=== PATIENT | male | born 1935 | race African-American/Black ===

== ENCOUNTER → 2016-12-23 | Outpatient (CLI) | payer MEDICARE ==
[~2016-12-23] MED LIST: AMLO10TA2 PO; AMLO5TAB2 PO; ATOR10TA PO; BICA50TA4 PO; GOSE10.8 SQ; IOHEXOL 240 MG/ML 50ML VIAL. PO ONE; VENL37.5 PO
--- NOTE | 2016-12-23 12:33 | RAD ---
CT study of the chest and abdomen and pelvis without contrast History: Prostate cancer. Follow-up study. Comparison: August 18, 2010 Technique: Noncontrast helical CT scanning of the chest and abdomen and pelvis was performed. Without contrast, the sensitivity to detect organ pathology is decreased. GI contrast was administered per mouth. PQRS Compliance Statement: One or more of the following individualized dose reduction techniques were utilized for this examination: 1. Automated exposure control 2. Adjustment of the mA and/or kV according to patient size 3. Use of iterative reconstruction technique CHEST CT: The heart size is at the upper limits and normal. Calcified atheromatous lymph nodes are seen within the right hilum. Right paratracheal and azygous lymph nodes are unchanged. No new thoracic lymphadenopathy is seen. No focal aneurysmal dilatation of the abdominal aorta is seen. Old granulomatous nodules are again seen. No new lung nodules are evident. No new lung infiltrate is seen. There is some chronic scarring within the lingula. No pleural effusion or pneumothorax is seen. The proximal bronchial tree is patent. No osteolytic process is seen. IMPRESSION: No new pulmonary nodules are evident. No acute radiographic abnormality is evident. ABDOMEN AND PELVIS CT: The liver and spleen and pancreas are homogeneous in appearance on this noncontrast study. The gallbladder is normal and no extra hepatic biliary ductal dilatation is seen. Left renal cysts are seen. No hydronephrosis or perinephric fluid collection is seen on either side. No adrenal mass is evident. No focal aneurysmal dilatation of the abdominal aorta is seen. Mild fecal retention is seen throughout the colon. No obstructive bowel pattern is evident. No free intraperitoneal air or free fluid or inflammatory change is seen. Small sclerotic lesions of L3 and the left pubic bone are seen which are stable consistent with benign bony islands. There is scoliosis of the spine with secondary degenerative endplate sclerosis and spurring and disc space narrowing. There has been progression of osteoarthritis of the right hip joint which is severe with [id number] interface. Right inguinal lymph nodes appear smaller. No new abdominal or pelvic lymphadenopathy is evident. Prostatectomy is evident. Urinary bladder wall is smooth. IMPRESSION: No acute abnormality of the abdomen or pelvis is seen. No new abdominal or pelvic lymphadenopathy is seen. Continued decrease in size of right inguinal lymph nodes. 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
--- NOTE | 2016-12-23 14:52 | RAD ---
Radionuclide bone scan, 12/23/2016: History: Staging prostate cancer Whole body imaging was performed following IV injection of 27 mCi of technetium 99 in MDP. Comparison is made to a study from 06/28/2015. The following findings are delineated: 1. Increased activity at the right hip has progressed since the previous study. This is apparently due to severe osteoarthritis as noted on the current CT study. 2. Increased activity at the left knee is unchanged and compatible with arthritis. 3. Several foci of mildly increased activity in the lumbar spine appear to have progressed slightly. Correlation with the current CT study suggests that these are likely arthritic in nature. 4. Abnormal activity at both shoulders and sternoclavicular regions are also probably arthritic. 5. Increased activity in the maxillary regions bilaterally is likely due to dental disease. 6. Activity of the radionuclide about the skeleton and major joints is otherwise unremarkable. IMPRESSION: 1. Scattered arthritic changes as described above. 2. No convincing evidence of osseous metastatic disease.
== END | disposition home or self-care (01) ==
LOC: NM 06:42
PROVIDERS: ATTEND Internal Medicine Hematology & Oncology
DX: C61 Malignant neoplasm of prostate (principal)
CPT/HCPCS: 71250; 74176; 78306; 96374; A9503; Q9966

== ENCOUNTER → 2017-02-15 | Outpatient (CLI) | payer MEDICARE ==
[~2017-02-15] MED LIST changes: -IOHEXOL 240 MG/ML 50ML VIAL. PO ONE
--- NOTE | 2017-02-15 15:23 | KCIC ---
Bone densitometry scan, 02/15/2017: HISTORY: Steroid use, prostate cancer The lumbar spine and left hip were examined utilizing a DEXA technique. The bone mineral density in the lumbar spine as measured from the L1-L4 levels is 1.05 g/sq cm. This yields a T score of -0.4. The total T score at the left hip is -0.7. These values are considered to be in the normal range. IMPRESSION: Normal bone mineral density measurements. Electronically signed by: Juan Shrestha MD (02/15/2017 3:20 PM)
== END | disposition home or self-care (01) ==
LOC: KCIC DEXA 09:56
PROVIDERS: ATTEND Internal Medicine Hematology & Oncology
DX: C61 Malignant neoplasm of prostate (principal)
CPT/HCPCS: 77080